=== PATIENT | female | born 1975 | race Caucasian/White ===

== ENCOUNTER 2018-07-02 21:45 | Inpatient (IN) ==
[2018-07-03] MEDS ORDERED: Piperacillin/Tazobactam 3.375 GM in 0.9 % Sodium Chloride Mini Bag 100 ML IVPB ONE (01:59)
--- NOTE | 2018-07-03 02:04 | Emergency Department Note ---
Disposition Clinical Impression: Left breast abscess, Cellulitis of left breast Disposition: Admitted As Inpatient Condition: Good Time of Disposition: 02:09 Wound/Laceration HPI - General Chief Complaint: ED Wound/Laceration Stated Complaint: Abscess L Breast Time Seen by Provider: 07/03/18 01:39 Nursing Notes Reviewed: Yes Vital Signs Reviewed: Yes - History of Present Illness HPI Narrative: 43-year-old female presents from home with bedside for continued evaluation of an incised abscess to the left breast. Patient had history of left breast abscess some years ago treated with bedside incision and drainage and antibiotics. This particular abscess started approximately 1 week ago and progressive. She was seen at outside hospital where she was given antibiotics unknown to the patient. The wound progressed and she [facility] with the abscess was incised, drained and she was placed on doxycycline and clindamycin. She was instructed that, if symptoms do not improve in 24 hours, to present to this emergency department. Patient's symptoms have not improved and she presents for evaluation. PMH: COPD Habits: Current every day smoker. ROS: Positive: Worsening redness and pain of left lower breast. Negative: Fever, chills, nausea, vomiting, chest pains, palpitations, dyspnea, diaphoresis, pain with movement of left upper extremity - Related Data Home Medications Medication Instructions Recorded Confirmed Lisinopril/Hydrochlorothiazide 1 tab PO DAILY 11/08/14 07/03/18 [Zestoretic 10-12.5 mg Tablet] Lovastatin [Mevacor] 20 mg PO HS 11/08/14 07/03/18 Albuterol Neb [AccuNeb] 1.25 mg IH Q4HR PRN 06/30/18 07/03/18 Albuterol Sulfate [Albuterol 2 puff IH Q4HR 06/30/18 07/03/18 Inhaler] Clindamycin [Cleocin] 150 mg PO Q6HR 06/30/18 07/03/18 Levothyroxine [Synthroid] 175 mcg PO 0630 06/30/18 07/03/18 Tramadol HCl [Ultram] 50 mg PO TID PRN 06/30/18 07/03/18 Previous Rx's Medication Instructions Recorded Dicloxacillin 250 mg PO QIDAC 7 Days #28 capsule 06/30/18 Doxycycline 100 mg PO BID #14 capsule 06/30/18 Ondansetron ODT [Zofran ODT] 4 mg SL Q6HR #10 tab.rapdis 07/01/18 Allergies Allergy/AdvReac Type Severity Reaction Status Date / Time hydromorphone [From Dilaudid] Allergy Hives Verified 07/01/18 15:36 All systems ED: reviewed and negative except as stated. Review of Systems: As Per HPI Past Medical History - Past Medical History Medical history: Reports: COPD, hyperlipidemia, hypertension, thyroid disease, other Surgical history: Reports: cholecystectomy, hysterectomy, other Psychiatric history: Reports: anxiety, depression [employer] history: Reports: bilateral tubal ligation - Social History Smoking Status: Current every day smoker Smokeless Tobacco Status: No Alcohol use: Reports: none Drug use: Reports: none Physical Exam Vital Signs Reviewed General: Patient is alert, oriented, and in no acute distress. Head: atraumatic, normocephalic Eye: normal appearance, PERRL, EOMI, no scleral icterus, no conjunctival injection ENT: mucous membranes moist, normal external ear exam Neck: normal inspection, trachea midline, full ROM Chest: normal inspection, symmetric chest rise Respiratory: Good respiratory effort. Bilateral breath sounds are clear without wheezing, crackles, or rhonchi. Cardiovascular: Regular rate and rhythm. No clicks, rubs, gallops, or murmors. Normal heart sounds. Abdomen: Bowel sounds present normoactive. Abdomen is soft, nondistended, and nontender. No guarding or rebound. No organomegaly noted. Musculoskeletal: Spontaneously moving all extremities. Skin: warm, dry. Cellulitis to lower breast extending to LUQ abdominal wall, no fluctuance or odor, no discharge from a surgical incision which remains open. Neuro: GCS 15. No focal neurologic deficits observed. Psych: Patient's affect is appropriate for situation. - General General appearance: alert Course Course Narrative: Patient has failed outpatient antibiotics. The abscess appears properly incised and drained it is nonfluctuant, patient and state the erythema and pain or worsening. Plan for admission with IV antibiotics Vital Signs Temperature 98.9 F 07/02/18 21:48 Pulse Rate 91 07/02/18 21:48 Respiratory Rate 18 07/02/18 21:48 Blood Pressure 164/100 07/02/18 21:48 O2 Sat by Pulse Oximetry 95 07/02/18 21:48 Temperature 97.4 F L 07/03/18 04:19 Pulse Rate 78 07/03/18 04:19 Respiratory Rate 16 07/03/18 04:19 Blood Pressure 145/87 07/03/18 04:19 O2 Sat by Pulse Oximetry 98 07/03/18 02:15 Oxygen Delivery Oxygen Delivery Room Air Wound/Laceration - Lab Data Result diagrams: 07/03/18 02:20 07/03/18 02:20 Lab Results 07/03/18 07/03/18 07/03/18 Range/Units 02:20 02:20 03:25 WBC 11.4 H (4.3-11.1) K/mcL RBC 4.38 (3.82-4.97) M/mcL Hgb 13.9 (11.5-15.4) g/dL Hct 40.6 (35.3-44.9) % MCV 92.7 (83.0-100.0) fL MCH 31.7 (28.0-33.3) pg MCHC 34.2 (31.6-35.5) g/dL RDW 12.4 (11.5-14.5) % Plt Count 244 (140-400) K/mcL MPV 11.8 (9.4-12.4) fL Immature Gran % 0.7 (0-4) % Seg Neutrophils % 59.4 % Lymphocytes % 29.5 % Monocytes % 7.6 % Eosinophils % 1.8 % Basophils % 1.0 % Neutrophils # 6.8 (1.6-8.9) K/mcL Lymphocytes # 3.4 (0.6-4.6) K/mcL Monocytes # 0.9 (0.0-1.3) K/mcL Eosinophils # 0.2 (0.0-0.6) K/mcL Basophils # 0.1 (0.0-0.2) K/mcL Sodium 131 L (136-145) mEq/L Potassium 3.3 L (3.5-5.1) mEq/L Chloride 100 (98-107) mEq/L Carbon Dioxide 27 (23-29) mEq/L BUN 8 (6-20) mg/dL Creatinine 0.57 L (0.60-1.20) mg/dL Est GFR ( Amer) > 60 (> 60) Est GFR (Non-Af Amer) > 60 (> 60) BUN/Creatinine Ratio 14 (6-26) Glucose 103 (70-105) mg/dL Calculated Osmolality 271 L (280-300) Lactic Acid 1.2 (0.5-2.2) mmol/L Calcium 8.8 (8.6-10.3) mg/dL Attestation Statement - Attestation Attestation: Dr. Ambriz note/attestation.: Patient was seen in conjunction with emergency medicine resident Dr. Edward Arias. Please see his charting for complete documentation. I spent [id number] time with the patient and I agree with the patient's treatment and disposition. Patient is had a history of recurrent left breast abscesses. This current abscess in the left lateral inferior breast started approximately 5-7 days ago. Clinically it appears that the incision and drainage done yesterday at an outside facility was done very well and was packed in the does not appear to be any residual fluctuance in or around the area of packing however patient is concerned about the erythema around the breast which is in the lower 20% of the anterior lateral breast and spreads onto the anterior chest wall. For this the patient says it is worse. No obvious fever. She has been on oral antibiotics for the last couple days that she reports her symptoms are getting worse and has been very complex in the past. Due to failed outpatient treatment she will be admitted on IV antibiotics for further evaluation. No indication for additional surgical intervention at this time.
[2018-07-03 02:25] LABS: Basophils # 0.1 K/mcL (0.0-0.2); Eosinophils # 0.2 K/mcL (0.0-0.6); Eosinophils % 1.8 %; Hematocrit 40.6 % (35.3-44.9); Hemoglobin 13.9 g/dL (11.5-15.4); Immature Granulocytes % 0.7 % (0-4); Lymphocytes # 3.4 K/mcL (0.6-4.6); Lymphocytes % 29.5 %; Mean Corpuscular HGB Conc 34.2 g/dL (31.6-35.5); Mean Corpuscular Hemoglobin 31.7 pg (28.0-33.3); Mean Corpuscular Volume 92.7 fL (83.0-100.0); Mean Platelet Volume 11.8 fL (9.4-12.4); Monocytes # 0.9 K/mcL (0.0-1.3); Monocytes % 7.6 %; Neutrophils # 6.8 K/mcL (1.6-8.9); Platelet Count 244 K/mcL (140-400); Red Blood Count 4.38 M/mcL (3.82-4.97); Red Cell Distribution Width 12.4 % (11.5-14.5); Segmented Neutrophils % 59.4 %
[2018-07-03 02:51] LABS: BUN/Creatinine Ratio 14 (6-26); Blood Urea Nitrogen 8 mg/dL (6-20); Calcium 8.8 mg/dL (8.6-10.3); Carbon Dioxide 27 mEq/L (23-29); Chloride 100 mEq/L (98-107); Glucose 103 mg/dL (70-105); Osmolality,Calculated 271 (280-300); Potassium 3.3 mEq/L (3.5-5.1); Sodium 131 mEq/L (136-145); eGFR For Non-African Americans > 60 (> 60)
[2018-07-03] MEDS ORDERED: Isovue-370 500 ML BOTTLE IVP ONE (03:05)
[2018-07-03] MEDS ORDERED: Albuterol Neb 1.25 MG/3 ML VIAL IH PRN ×2 (03:59→20:29)
[2018-07-03] MEDS ORDERED: *HR* OxyCODONE Immed Rel 5 MG TABLET PO PRN ×2 (04:00→19:34)
[2018-07-03] MEDS ORDERED: traMADol 50 MG TABLET PO PRN ×2 (04:00→20:29)
[2018-07-03] MEDS ORDERED: Naloxone 0.4 MG/ML INJ IVP PRN ×2 (04:00→20:29)
[2018-07-03] MEDS ORDERED: Acetaminophen 325 MG TABLET PO PRN ×2 (04:00→20:29)
[2018-07-03] MEDS ORDERED: Potassium Chloride Elixir 20 MEQ/15 ML UDC PO ONE (04:12)
[2018-07-03] MEDS ORDERED: 0.9 % Sodium Chloride 1,000 ML IVC SCH (04:30)
--- NOTE | 2018-07-03 04:36 | Internal Med History&Physical ---
Date of Encounter: 07/03/18 Time of Encounter: 04:35 Internal Medicine - H&P: HPI Chief complaint: left breast pain Admitted From: Home Plans for Post Hospital Care: Home History of present illness: Rhiannon Patel is a 43 year old woman with hypertension who developed soreness to her right breast spontaneously about 10 days ago that progressed to noticing erythema and firmness. She sought attention at [facility] where she was given 1 dose of parenteral abx then Rx clindamycin to go home on. It continued to progress over the days despite the oral abx with worsening pain and subsequently noticed blisters forming and skin sloughing. She went to [place] [facility] on 06/30 where she was offered I&D but declined so more abx were given. She went back the next day due to unbearable pain and firmness where an I&D was performed and copious purulent material was evacuated. The content was not sent for culture. She was Rx more oral abx. She comes here now due to a lack of improvement in her symptoms and developing chills. She is now admitted for inadequate response to outpatient therapy. Vitals: Reviewed General: Well developed woman lying in bed in NAD Skin: Warm and dry. HEENT: Moist mucous membranes. No conjunctivae pallor. Neck: No lymphadenopathy. No JVD. No carotid bruits. No palpable thyroid. Chest: Normal thoracic expansion. Normal breath sounds. Clear to auscultation. Left breast in its inferior aspect is pink, blanching, tense and dimpled with exquisite soreness to touch. Sub-centimeter sized orifice on inferolateral aspect draining fluid with surrounding eschar. Heart: Normal S1 & S2; rhythmic. No rubs or murmurs. Abdomen: Non-distended, soft and non-tender to palpation. No peritoneal reaction. Extremities: No clubbing, cyanosis or edema. No calf tenderness. Normal distal pulses. Neurological: Awake, alert and oriented to person, place and time. No focal deficits. Psych: Affect appropriate. Assessment/Plan 1. Right breast abscess: Suspected based on clinical exam. Will get a contrast enhanced CT for assessment. If positive will consult surgery for intervention. In the interim, keep on IV vancomycin, send blood cultures and obtain coags in case intervention is needed. 2. Hypertension: Continue Lisinopril/hctz. 3. Hypothyroidism: On levothyroxine. 4. Electrolyte imbalance: As evidenced by hyponatremia and hypokalemia. Will supplement accordingly. Past Med Surg Social Fam HX - Past Medical History Medical history: asthma, COPD, hyperlipidemia, hypertension, thyroid disease, other Additional medical history: hasimotos. Psychiatric history: anxiety, depression - Past Surgical History Surgical History: cholecystectomy, hysterectomy, other Additional surgical history: partial hysterectomy, tubal ligation, nerve ablation of spine - Social History Smoking Status: Current every day smoker Smokeless Tobacco Status: No Alcohol use: none Drug use: none Internal Medicine - H&P: Meds Lisinopril/Hydrochlorothiazide [Zestoretic 10-12.5 mg Tablet] 1 tab PO DAILY 11/08/14 [History] Lovastatin [Mevacor] 20 mg PO HS 11/08/14 [History] Albuterol Neb [AccuNeb] 1.25 mg IH Q4HR PRN 06/30/18 [History] Albuterol Sulfate [Albuterol Inhaler] 2 puff IH Q4HR 06/30/18 [History] Clindamycin [Cleocin] 150 mg PO Q6HR 06/30/18 [History] Dicloxacillin 250 mg PO QIDAC 7 Days #28 capsule 06/30/18 [Rx] Doxycycline 100 mg PO BID #14 capsule 06/30/18 [Rx] Levothyroxine [Synthroid] 175 mcg PO 0630 06/30/18 [History] Tramadol HCl [Ultram] 50 mg PO TID PRN 06/30/18 [History] Ondansetron ODT [Zofran ODT] 4 mg SL Q6HR #10 tab.rapdis 07/01/18 [Rx] Allergy/AdvReac Type Severity Reaction Status Date / Time hydromorphone [From Dilaudid] Allergy Hives Verified 07/01/18 15:36 All Systems PM: A 10-system review of systems was performed and is negative for pertinent findings except as documented above in the HPI. Family history reviewed and found non-contributory. - Constitutional Vitals: Temp Pulse Resp BP Pulse Ox 97.4 F L 78 16 145/87 98 07/03/18 04:19 07/03/18 04:19 07/03/18 04:19 07/03/18 04:19 05/27/19 02:15 Exam: . Internal Med - H&P Results - Labs CBC & Chem 7: 07/03/18 02:20 07/03/18 02:20 Labs: Short CBC 07/03/18 Range/Units 02:20 WBC 11.4 H (4.3-11.1) K/mcL Hgb 13.9 (11.5-15.4) g/dL Hct 40.6 (35.3-44.9) % Plt Count 244 (140-400) K/mcL Neutrophils # 6.8 (1.6-8.9) K/mcL BMP 07/03/18 02:20 Sodium 131 L Potassium 3.3 L Chloride 100 Carbon Dioxide 27 BUN 8 Creatinine 0.57 L Glucose 103 Calcium 8.8 - Time Spent With Patient Total time spent is greater than 50% in coordination of care (as documented) at patient's floor/unit and/or counseling patient: Greater than 35 minutes
[2018-07-03] MEDS: Ondansetron ODT 4 MG TAB.RAPDIS SL SCH ×3 (04:54→19:06)
[2018-07-03] MEDS ORDERED: *HR* Heparin 5,000 UNIT/ML VIAL SQ SCH (06:00)
[2018-07-03] MEDS: *HR* Heparin 5,000 UNIT/ML VIAL SQ SCH ×2 (06:36→19:06)
[2018-07-03 09:26] LABS: INR 1.1; Prothrombin Time 12.1 Seconds (9.4-12.1)
[2018-07-03 09:29] LABS: Activated Partial Thrombo Time 33.4 Seconds (26.0-36.0)
--- NOTE | 2018-07-03 10:28 | AcuteCare Surgery Consult Note ---
Date of Encounter: 07/03/18 Time of Encounter: 09:55 Assessment and Plan (1) Left breast abscess Current Visit: Yes Status: Acute Recommend Surgical incision and drainage of left breast abscess. Procedure, risks and benefit of left breast I&D are discussed with pt. Indiciations are compelled by failed outpt treatment. Possible complications include but, are not limited to bleeding or missed infection. Pt understands risks and wishes to proceed as advised. Continue IV abx with zosyn and vanc. NPO. COnsent obtained. Surgery scheduled. History of Present Illness Reason for consult: other (Left breast abscess) Requesting physician: Guerda Jane History of present illness: This 43 y /o female is admitted to [facility] for a left breast abscess that has fa iled outpt management. Pt reports left breast pain since 06/25/18 (8 days). She reports that initially she was started on PO clindamycin and the breast continued to be painful and red. She reports continued worsening of redness, swelling and pain. Also, at [facility] she underwent a lancing and packing of abscess. Purulent fluid was drained and packing was placed. However, the drainage stopped and the redness, swelling and pain continued to progressively worsen. Pt denies bloody or purulent nipple DC. She denies lumps in armpits. She denies other symptoms. She denies fever. Past Med Surg Social Fam HX - Past Medical History Medical history: asthma, COPD, hyperlipidemia, hypertension, thyroid disease, other Additional medical history: hasimotos. Psychiatric history: anxiety, depression - Past Surgical History Surgical History: cholecystectomy, hysterectomy, other Additional surgical history: partial hysterectomy, tubal ligation, nerve ablation of spine - Social History Smoking Status: Current every day smoker Smokeless Tobacco Status: No Alcohol use: none Drug use: none - Family History Mother Hx Family Cardiac Disorders: Yes (htn) Hx Family Cancer: Yes (melonoma) Medications and Allergies Lisinopril/Hydrochlorothiazide [Zestoretic 10-12.5 mg Tablet] 1 tab PO DAILY 11/08/14 [History] Lovastatin [Mevacor] 20 mg PO HS 11/08/14 [History] Albuterol Neb [AccuNeb] 1.25 mg IH Q4HR PRN 06/30/18 [History] Albuterol Sulfate [Albuterol Inhaler] 2 puff IH Q4HR 06/30/18 [History] Clindamycin [Cleocin] 150 mg PO Q6HR 06/30/18 [History] Dicloxacillin 250 mg PO QIDAC 7 Days #28 capsule 06/30/18 [Rx] Doxycycline 100 mg PO BID #14 capsule 06/30/18 [Rx] Levothyroxine [Synthroid] 175 mcg PO 0630 06/30/18 [History] Tramadol HCl [Ultram] 50 mg PO TID PRN 06/30/18 [History] Ondansetron ODT [Zofran ODT] 4 mg SL Q6HR #10 tab.rapdis 07/01/18 [Rx] Allergy/AdvReac Type Severity Reaction Status Date / Time hydromorphone [From Dilaudid] Allergy Hives Verified 07/01/18 15:36 Review of Systems All systems PM: The remainder of the systems were reviewed and are negative - Constitutional as per HPI, no anorexia, no chills, no fatigue, no fever(s), no night sweats - EENT Nose, mouth and throat: no dizziness, no dry mouth, no nasal congestion, no nasal discharge, no sinus pain, no sinus pressure, no sore throat - Cardiovascular no chest pain, no diaphoresis, no dyspnea, no edema - Respiratory no cough, no dyspnea, no wheezing - Gastrointestinal no abdominal pain, no constipation, no diarrhea, no nausea, no vomiting - Genitourinary Genitourinary: breast pain, breast skin changes, breast swelling, no breast change in shape, no breast mass, no dysuria, no flank pain, no urinary urgency - Musculoskeletal no back pain, no joint swelling, no limited range of motion, no neck pain - Integumentary wounds, other (left breast abscess + purulent drainage) - Neurological no dizziness, no focal weakness, no weakness - Psychiatric no anxiety, no depression - Hematologic/Lymphatic no easy bleeding, no easy bruising General Surgery Exam Initial Vital Signs Temp Pulse Resp BP Pulse Ox 98.9 F 91 18 164/100 95 07/02/18 21:48 07/02/18 21:48 07/02/18 21:48 07/02/18 21:48 07/02/18 21:48 - General physical appearance well developed, well nourished, no distress. negative: jaundice - Eyes PERRL, normal ocular movement. negative: icteric - ENT normal mucosa, no congestion. negative: nasal discharge - Neck no masses, no lymphadectomy, no venous distension - Respiratory normal respiratory effort, clear to auscultation - Cardiovascular Cardiovascular exam: Present: RRR. Absent: murmurs - Abdomen Abdomen general surgery: Present: bowel sounds present, soft, non tender - Incision Incision: Present: open (left breast with puncture from I&D with no active drain age) - Genitourinary Present: normal external genitalia (see above for breast findings) - Integumentary Integumentary general surgery: Present: other (left breast abscess) - Neurologic Present: CN 2-12 grossly intact, normal coordination - Musculoskeletal Present: normal gait, normal posture - Psychiatric Psychiatric general surgery: Present: A&Ox3, appropriate Exam Initial Vital Signs Temp Pulse Resp BP Pulse Ox 98.9 F 91 18 164/100 95 07/02/18 21:48 07/02/18 21:48 07/02/18 21:48 07/02/18 21:48 07/02/18 21:48 Results - Labs 07/03/18 02:20 07/03/18 02:20 Abnormal lab results WBC 11.4 K/mcL (4.3-11.1) H 07/03/18 02:20 Sodium 131 mEq/L (136-145) L 07/03/18 02:20 Potassium 3.3 mEq/L (3.5-5.1) L 07/03/18 02:20 0.57 mg/dL (0.60-1.20) L 07/03/18 02:20 271 (280-300) L 07/03/18 02:20 Diabetes panel 07/03/18 Range/Units 02:20 Sodium 131 L (136-145) mEq/L Potassium 3.3 L (3.5-5.1) mEq/L Chloride 100 (98-107) mEq/L Carbon Dioxide 27 (23-29) mEq/L BUN 8 (6-20) mg/dL Creatinine 0.57 L (0.60-1.20) mg/dL Glucose 103 (70-105) mg/dL Calcium 8.8 (8.6-10.3) mg/dL Calcium panel 07/03/18 Range/Units 02:20 Calcium 8.8 (8.6-10.3) mg/dL Pituitary panel 07/03/18 Range/Units 02:20 Sodium 131 L (136-145) mEq/L Potassium 3.3 L (3.5-5.1) mEq/L Chloride 100 (98-107) mEq/L Carbon Dioxide 27 (23-29) mEq/L BUN 8 (6-20) mg/dL Creatinine 0.57 L (0.60-1.20) mg/dL Glucose 103 (70-105) mg/dL Calcium 8.8 (8.6-10.3) mg/dL Adrenal panel 07/03/18 Range/Units 02:20 Sodium 131 L (136-145) mEq/L Potassium 3.3 L (3.5-5.1) mEq/L Chloride 100 (98-107) mEq/L Carbon Dioxide 27 (23-29) mEq/L BUN 8 (6-20) mg/dL Creatinine 0.57 L (0.60-1.20) mg/dL Glucose 103 (70-105) mg/dL Calcium 8.8 (8.6-10.3) mg/dL All other labs normal. - Imaging CT scan - chest: report reviewed (Left breast skin changes c/w cellulitis and subq air), image reviewed Consult Discharge Plan - Plan Referrals: Pam Thayer, PROPERTY ADMINISTRATOR [Primary Care Provider] - (Appointment has been requsted. Our offices will call with an appointment time and date.)
--- NOTE | 2018-07-03 11:46 | Internal Med Progress Note ---
Hospitalist Progress Note - Encounter Date of Encounter: 07/03/18 Time of Encounter: 10:00 - Subjective Interval History: Ms. Patel is a 43 year old woman with hypertension who developed soreness to her left breast spontaneously about 10 days ago that progressed with erythema and firmness. She sought attention at [facility] where she was given 1 dose of parenteral abx then Rx clindamycin to go home on. It continued to progress over the days despite the oral abx with worsening pain and subsequently noticed blisters forming and skin sloughing. She went to [place] [facility] on 06/30 where she was offered I&D but declined so more abx were given. She went back the next day due to unbearable pain and firmness where an I&D was performed and copious purulent material was evacuated. The content was not sent for culture. She was Rx more oral abx. Now she presented to our ER due to a lack of improvement in her symptoms and developing chills. Her CT of Chest showed Asymmetric superficial skin thickening of the left breast. Small focus of associated air c an relate to recent intervention. she was admitted in the hospital and started her on empirical antibiotic IV zosyn and vancomycin. Pt stated she is feeling little better today, however still has moderate erythema, tenderness and swelling in Left breast. - Exam Vitals: Temp Pulse Resp BP Pulse Ox 98.1 F 72 19 126/81 95 07/03/18 06:42 07/03/18 06:42 07/03/18 06:42 07/03/18 06:42 07/03/18 06:42 Exam: Gen: Alert, awake, Oriented to time,place and person Chest: Diminished breath sounds B/L, No wheezing, No crackles, No rales Breast" Small puncture wound from recent I & D noticed over Left breast LLQ reg ion associated with swelling, tender and induration over LLQ Heart: S1S2+ RRR No murmurs Abd: Soft, NT, BS +, No organomegaly Ext: No edema, pulses are palpable, No calf tenderness Neuro : Benign findings - Assessment and Plan (1) Left breast abscess Current Visit: Yes Status: Acute Assessment and Plan: Concerning for left breast abscess s/p I & D twice in the ER.. no improvement Consulted surgery for further eval.. scheduled for I & D today Since pt failed out pt abx therapy, cont broad spec abx Zosyn and Vanc for now cont close monitoring NPO for now for surgery (2) Cellulitis of left breast Current Visit: Yes Status: Acute Assessment and Plan: cont above care (3) HTN (hypertension) Current Visit: Yes Status: Acute Assessment and Plan: Blood pressure well-controlled with current regimen (4) Hypothyroid Current Visit: Yes Status: Chronic Assessment and Plan: resumed home med - Time Spent with Patient Total time spent is greater than 50% in coordination of care (as documented) at patient's floor/unit and/or counseling patient: Internal Medicine: Result - Labs CBC & Chem 7: 07/03/18 02:20 07/03/18 02:20 Labs: Short CBC 07/03/18 Range/Units 02:20 WBC 11.4 H (4.3-11.1) K/mcL Hgb 13.9 (11.5-15.4) g/dL Hct 40.6 (35.3-44.9) % Plt Count 244 (140-400) K/mcL Neutrophils # 6.8 (1.6-8.9) K/mcL BMP 07/03/18 02:20 Sodium 131 L Potassium 3.3 L Chloride 100 Carbon Dioxide 27 BUN 8 Creatinine 0.57 L Glucose 103 Calcium 8.8 - ABG Interpretation ABG results: PT/INR, D-dimer PT 12.1 Seconds (9.4-12.1) 07/03/18 08:38 - Impressions Impressions Chest CT 07/03/18 03:05 IMPRESSION: Asymmetric superficial skin thickening of the left breast, in keeping with patient's history of cellulitis. Small focus of associated air can relate to recent intervention. Left axillary adenopathy likely reactive. Follow-up to resolution is recommended. Several noncalcified pulmonary nodules measuring up to approximately 5 mm. Follow-up recommendations are as below. RECOMMENDATIONS: Fleischner Society guidelines for follow-up and management of incidentally detected pulmonary nodules: Single Solid Nodule: Nodule size less than 6 mm In a low-risk patient, no routine follow-up. In a high-risk patient, optional CT at 12 months. Nodule size equals 6-8 mm In a low-risk patient, CT at 6-12 months, then consider CT at 18-24 months. In a high-risk patient, CT at 6-12 months, then CT at 18-24 months. Nodule size greater than 8 mm In a low-risk patient, consider CT at 3 months, PET/CT, or tissue sampling. In a high-risk patient, consider CT at 3 months, PET/CT, or tissue sampling. Multiple Solid Nodules: Nodule size less than 6 mm In a low-risk patient, no routine follow-up. In a high-risk patient, optional CT at 12 months. Nodule size equals 6-8 mm In a low-risk patient, CT at 3-6 months, then consider CT at 18-24 months. In a high-risk patient, CT at 3-6 months, then CT at 18-24 months. Nodule size greater than 8 mm In a low-risk patient, CT at 3-6 months, then consider CT at 18-24 months. In a high-risk patient, CT at 3-6 months, then CT at 18-24 months. - Low risk patients include individuals with minimal or absent history of smoking and other known risk factors. - High risk patients include individuals with a history or smoking or known risk factors. Radiology 2017 http://pubs.rsna.org/doi/full/10.1148/radiol.[email or web address] D/ / Jessee Linares MD / Jessee Linares MD Interpreting Provider: Jessee Linares MD Consult Discharge Plan - Plan Referrals: Pam Thayer, ENERGY MANAGER [Primary Care Provider] - (Appointment has been requsted. Our offices will call with an appointment time and date.) (3) HTN (hypertension) Qualifiers: Hypertension type: essential hypertension Qualified Code(s): I10 - Essential (primary) hypertension (4) Hypothyroid Qualifiers: Hypothyroidism type: unspecified Qualified Code(s): E03.9 - Hypothyroidism, unspecified
--- NOTE | 2018-07-03 16:37 | Anesthesia Evaluation PreOp ---
Date of Encounter: 07/03/18 Time of Encounter: 16:35 - Past History Planned Operation: I&D L-breast Cardiac History: HTN, Hyperlipidemia Pulmonary History: Smoker (<1ppd), Asthma, COPD, ADELA Dx (denies) CRIMINALIST History: Denies Any Significant HX Other Medical History: Thyroid (Hypothyroidism) Anesthesia History: No Prior Anesthetic Complications, Past Anesthesia (Marya, Partial Hyster, Spinal nerve root ablation,) : No Test: Negative Alcohol Use: none Drug use: none Medications and Allergies Lisinopril/Hydrochlorothiazide [Zestoretic 10-12.5 mg Tablet] 1 tab PO DAILY 11/08/14 [History] Lovastatin [Mevacor] 20 mg PO HS 11/08/14 [History] Albuterol Neb [AccuNeb] 1.25 mg IH Q4HR PRN 06/30/18 [History] Albuterol Sulfate [Albuterol Inhaler] 2 puff IH Q4HR 06/30/18 [History] Clindamycin [Cleocin] 150 mg PO Q6HR 06/30/18 [History] Dicloxacillin 250 mg PO QIDAC 7 Days #28 capsule 06/30/18 [Rx] Doxycycline 100 mg PO BID #14 capsule 06/30/18 [Rx] Levothyroxine [Synthroid] 175 mcg PO 0630 06/30/18 [History] Tramadol HCl [Ultram] 50 mg PO TID PRN 06/30/18 [History] Ondansetron ODT [Zofran ODT] 4 mg SL Q6HR #10 tab.rapdis 07/01/18 [Rx] Allergy/AdvReac Type Severity Reaction Status Date / Time hydromorphone [From Dilaudid] Allergy Hives Verified 07/01/18 15:36 - Meds/Allergy Pre-op Review Medications Reviewed: Yes Allergies Reviewed: Yes Beta Blockers on Current Med List: No Anesthesia Results - Labs 07/03/18 02:20 07/03/18 02:[address] 07/03/18 03:05 IMPRESSION: Asymmetric superficial skin thickening of the left breast, in keeping with patient's history of cellulitis. Small focus of associated air can relate to recent intervention. Left axillary adenopathy likely reactive. Follow-up to resolution is recommended. Several noncalcified pulmonary nodules measuring up to approximately 5 mm. Laboratory Results 07/03/18 08:38 PT 12.1 INR 1.1 APTT 33.4 Anesthesia Exam Vital Signs Temp Pulse Resp BP Pulse Ox 07/03/18 16:14 98.6 F 66 14 125/81 94 07/03/18 12:19 98.4 F 76 15 107/71 92 07/03/18 06:42 98.1 F 72 19 126/81 95 07/03/18 04:19 97.4 F L 78 16 145/87 07/03/18 04:07 16 134/96 07/03/18 02:15 86 16 144/93 98 07/02/18 21:48 98.9 F 91 18 164/100 95 Intake and Output 07/03/18 07/03/18 07/03/18 07:59 15:59 23:59 Output Total 0 / 0 Balance 0 / 0 Output: Urine 0 / 0 Other: # Voids 1 Weight 71 kg Patient Weight 07/03/18 23:59 Weight 71 kg Height: 5'5" Weight: 156# BMI = 26 NPO (# of Hours): MNoc - HEENT Pupil (Motor): Pupils equal, EOMI Mallampati: III Teeth: Edentulous - CRIMINALIST LOC: Oriented CRIMINALIST Motor: Normal RUE, Normal LUE, Normal RLE, Normal LLE, Normal Face CRIMINALIST Sensory: Normal: RUE, LUE, RLE, LLE, Face - Cardiac Rhythm: Regular Murmur: None - Pulmonary Breath Sounds: bilateral Clear Respiratory Effort: Symmetrical Anesthesia Assess/Plan ASA Score: 3 (HTN, Chol, Smoker, Asthma, COPD, Hypothyroidism), E Level of consciousness: Cooperative, Oriented, Tranquil Anesthetic Plan: General Monitoring Plan: Standard Monitors Recovery Plan: PACU Anes Supervising Prov Stmt: Pt seen/evaluated, R&B Discussed,questions answered and consent obtained. Tiffany Ornelas MD
[2018-07-03] MEDS ORDERED: Lidocaine -MPF 2% 2 ML VIAL ONE (17:37)
[2018-07-03] MEDS ORDERED: *HR* Midazolam HCl 2 MG/2 ML VIAL ONE (17:38)
[2018-07-03] MEDS ORDERED: *HR* Propofol 200 MG/20 ML VIAL IVP ONE (17:38)
[2018-07-03] MEDS ORDERED: *HR* FentaNYL (PF) 100 MCG/2 ML VIAL ONE (17:38)
[2018-07-03] MEDS ORDERED: Acetaminophen IV 1,000 MG/100 ML INFUS..BTL ONE (18:24)
[2018-07-03] MEDS ORDERED: Pregabalin 75 MG CAPSULE ONE (18:24)
[2018-07-03] MEDS ORDERED: Famotidine 20 MG/2 ML VIAL ONE (18:25)
[2018-07-03] MEDS ORDERED: Ondansetron 4 MG/2 ML VIAL ONE (19:07)
[2018-07-03] MEDS ORDERED: Dexamethasone 4 MG/ML VIAL ONE (19:07)
--- NOTE | 2018-07-03 19:23 | Operative Note ---
Date of procedure: 07/03/18 Pre-op diagnosis: Left breast abscess Post-op diagnosis: same Procedure: Incision and drainage of left breast abscess Complications: None Anesthesia: GETA Surgeon: Feliz Patel Was there an cancer genetics assistant present: No Estimated blood loss (cc): 20 Specimen: Aerobic and anaerobic cultures of left breast abscess Condition: stable Disposition: PACU Procedure in Detail: This 43 y/o female pt with left breast abscess was taken to OR and placed in the supine position. The left breast was prepped and draped in the usual sterile fashion. A 10 blade scalpel was used to make an elliptical incision over the apex of the fluctuant mass. Immediate drainage of purulent fluid was achieved. This fluid was cultured with aerobic and anaerobic culture swabs. The abscess cavity was completely drained. It was explored for loculations and tracking. The infected tissue was debrided. No signs of necrosis or gangrene were appreciated. The wound cavity was then irrigated with pulse lavage. Hemostasis was perfected using electrocautery. The wound was packed with 1 inch iodoform packing strip. A sterile cover dressing was placed. A surgical bra was placed. Pt tolerated the procedure well and was taken to the PACU in good condition.
[2018-07-03] MEDS ORDERED: Ketorolac 30 MG/ML VIAL ONE (19:24)
[2018-07-03] MEDS ORDERED: Ipratropium/Albuterol Neb 3 ML ONE (19:28)
[2018-07-03] MEDS ORDERED: *HR* Promethazine 25 MG/ML VIAL IVP PRN (19:33)
[2018-07-03] MEDS ORDERED: Ondansetron 4 MG/2 ML VIAL IVP ONE (19:33)
[2018-07-03] MEDS ORDERED: Ipratropium/Albuterol Neb 3 ML IH ONE (19:34)
--- NOTE | 2018-07-03 19:37 | Anesthesia Evaluation Post Op ---
Date of Encounter: 07/03/18 Time of Encounter: 09:55 - Discharge PostOp Status: Transfer Patient to floor (Patient's vital signs have been reviewed. Patient is stable postoperatively and has adequately recovered from anesthesia. Patient is determined to have stable airway patency and respiratory function including respiratory rate and oxygen saturation. Patient has a stable heart rate, blood pressure and adequate hydration. Patients mental status is acceptable. Patients temperature is appropriate. Pain and nausea are adequately controlled.)
[2018-07-03] MEDS ORDERED: *HR* Promethazine 25 MG/ML VIAL ONE (19:40)
[2018-07-03] MEDS: Piperacillin/Tazobactam 3.375 GM in 0.9 % Sodium Chloride Mini Bag 100 ML IVPB SCH (23:52)
[2018-07-04] MEDS: Ondansetron ODT 4 MG TAB.RAPDIS SL SCH ×4 (00:12→17:51)
[2018-07-04] MEDS: *HR* OxyCODONE Immed Rel 5 MG TABLET PO PRN ×4 (02:37→21:02)
[2018-07-04] MEDS: *HR* Heparin 5,000 UNIT/ML VIAL SQ SCH ×2 (05:39→17:51)
[2018-07-04] MEDS: Piperacillin/Tazobactam 3.375 GM in 0.9 % Sodium Chloride Mini Bag 100 ML IVPB SCH ×2 (08:16→17:48)
[2018-07-04] MEDS ORDERED: Aminoglycoside Consult 1 EACH MC ONE (11:22)
--- NOTE | 2018-07-04 11:37 | Internal Med Progress Note ---
Hospitalist Progress Note - Encounter Date of Encounter: 07/04/18 Time of Encounter: 10:45 - Subjective Interval History: Ms. Patel is a 43 year old woman with hypertension who developed soreness to her left breast spontaneously about 10 days ago that progressed with erythema and firmness. She sought attention at [place] [facility] where she was given 1 dose of parenteral abx then Rx clindamycin to go home on. It continued to progress over the days despite the oral abx with worsening pain and subsequently noticed blisters forming and skin sloughing. She went to [facility] on 06/30 where she was offered I&D but declined so more abx were given. She went back the next day due to unbearable pain and firmness where an I&D was performed and copious purulent material was evacuated. The content was not sent for culture. She was Rx more oral abx. Now she presented to our ER due to a lack of improvement in her symptoms and developing chills. Her CT of Chest showed Asymmetric superficial skin thickening of the left breast. Small focus of associated air c an relate to recent intervention. she was admitted in the hospital and started her on empirical antibiotic IV zosyn and vancomycin. She was evaluated by surgery who did I & D on 07/03/18 and packed the wound. Pt stated she is feeling little better today, her pain also tolerable with current meds. - Exam Vitals: Temp Pulse Resp BP Pulse Ox 97.8 F 58 17 113/73 94 07/04/18 11:09 07/04/18 11:09 07/04/18 11:09 07/04/18 11:09 07/04/18 11:09 Exam: Gen: Alert, awake, Oriented to time,place and person Chest: Diminished breath sounds B/L, No wheezing, No crackles, No rales Breast : s/p I & D left breast LLQ with wound packing.. Still has mild discharge Heart: S1S2+ RRR No murmurs Abd: Soft, NT, BS +, No organomegaly Ext: No edema, pulses are palpable, No calf tenderness Neuro : Benign findings - Assessment and Plan (1) Left breast abscess Current Visit: Yes Status: Acute Assessment and Plan: Concerning for left breast abscess s/p I & D twice in the ER.. no improvement Failed out pt abx for almost 7-10 days course Consulted surgery for further eval. Had I & D with wound packing y/d Swelling, erythema and tenderness better today Since pt failed out pt abx therapy, cont broad spec abx Zosyn and Vanc for now waiting for wound cx cont close monitoring (2) Cellulitis of left breast Current Visit: Yes Status: Acute Assessment and Plan: cont above care (3) HTN (hypertension) Current Visit: Yes Status: Acute Assessment and Plan: Blood pressure well-controlled with current regimen (4) Hypothyroid Current Visit: Yes Status: Chronic Assessment and Plan: resumed home med - Time Spent with Patient Total time spent is greater than 50% in coordination of care (as documented) at patient's floor/unit and/or counseling patient: Internal Medicine: Result - Labs CBC & Chem 7: 07/03/18 02:20 07/03/18 02:20 - ABG Interpretation ABG results: PT/INR, D-dimer PT 12.1 Seconds (9.4-12.1) 07/03/18 08:38 Consult Discharge Plan - Plan Referrals: Zhang Vivas MD [Non-Partnered Physician] - (Appointment hsa been requested) Pam Thayer CNP [Primary Care Provider] - (Appointment has been requsted. Our offices will call with an appointment time and date.) (3) HTN (hypertension) Qualifiers: Hypertension type: essential hypertension Qualified Code(s): I10 - Essential (primary) hypertension (4) Hypothyroid Qualifiers: Hypothyroidism type: unspecified Qualified Code(s): E03.9 - Hypothyroidism, unspecified
[2018-07-04 12:35] LABS: Basophils # 0.1 K/mcL (0.0-0.2); Basophils % 0.6 %; Eosinophils # 0.1 K/mcL (0.0-0.6); Eosinophils % 0.5 %; Hematocrit 36.9 % (35.3-44.9); Immature Granulocytes % 0.6 % (0-4); Lymphocytes # 2.5 K/mcL (0.6-4.6); Lymphocytes % 20.8 %; Mean Corpuscular HGB Conc 32.8 g/dL (31.6-35.5); Mean Corpuscular Volume 94.6 fL (83.0-100.0); Mean Platelet Volume 12.3 fL (9.4-12.4); Monocytes % 8.2 %; Neutrophils # 8.4 K/mcL (1.6-8.9); Platelet Count 223 K/mcL (140-400); Red Cell Distribution Width 12.7 % (11.5-14.5); Segmented Neutrophils % 69.3 %
[2018-07-04 12:36] LABS: Hemoglobin 12.1 g/dL (11.5-15.4)
[2018-07-04 12:52] LABS: BUN/Creatinine Ratio 15 (6-26); Blood Urea Nitrogen 11 mg/dL (6-20); Carbon Dioxide 28 mEq/L (23-29); Chloride 99 mEq/L (98-107); Glucose 111 mg/dL (70-105); Osmolality,Calculated 278 (280-300); Potassium 3.9 mEq/L (3.5-5.1); Sodium 134 mEq/L (136-145); eGFR For Non-African Americans > 60 (> 60)
--- NOTE | 2018-07-04 15:23 | AcuteCareSurgery Progress Note ---
Date of Encounter: 07/04/18 Time of Encounter: 07:30 - Assessment and Plan (1) Left breast abscess Current Visit: Yes Status: Acute POD#1 Incision and drainage left breast abscess. Pt doing well. daily packing changes with decreasing length of iodoform packing material. DC home per primary service. F/U with acute care surgery in 2 weeks. Subjective Patient reports: no new complaints, feels better, still having pain, pain is less, tolerating a regular diet Objective Vital Signs - Last 8 Hours Temp Pulse Resp BP Pulse Ox 07/04/18 11:09 97.8 F 58 17 113/73 94 Intake and Output 07/03/18 07/04/18 07/04/18 23:59 07:59 15:59 Intake Total 100 / 1050 950 / 1050 Output Total 20 / 20 Balance -20 / -20 100 / 1050 950 / 1050 Intake: IV Fluids 100 / 450 350 / 450 Zosyn 3.375 GM In 0.9 % Sodium 100 / 200 100 / 200 Chloride (Mini-Bag +) 100 ML @ 25 mls/hr IVPB Q8HR CL Rx#: [id number] Vancocin 1,000 MG In 0.9 % 250 / 250 Sodium Chloride 250 ML @ 167 mls/hr IVPB Q12H CL Rx#: [id number] Oral 600 / 600 Output: Estimated Blood Loss 20 / 20 Other: Meal Lunch Percent of Meal Consumed 80% # Voids 1 Weight 71.3 kg Patient Weight 07/04/18 23:59 Weight 71.3 kg - General physical appearance no distress, moderate pain (much improved) - Eyes PERRL, normal ocular movement - ENT normal mucosa, no congestion - Neck Neck exam: no masses, trachea midline - Respiratory normal respiratory effort, clear to auscultation - Cardiovascular Cardiovascular exam: Present: RRR. Absent: murmurs - Abdomen Abdomen: Present: bowel sounds present, soft, non tender - Incision Incision: Present: open (left breast with packing in place) - Neurologic CN 2-12 grossly intact, normal coordination - Musculoskeletal normal posture - Psychiatric oriented to time, oriented to person, oriented to place - Labs 07/04/18 11:43 07/04/18 11:43 Diabetes panel 07/04/18 Range/Units 11:43 Sodium 134 L (136-145) mEq/L Potassium 3.9 (3.5-5.1) mEq/L Chloride 99 (98-107) mEq/L Carbon Dioxide 28 (23-29) mEq/L BUN 11 (6-20) mg/dL Creatinine 0.72 (0.60-1.20) mg/dL Glucose 111 H (70-105) mg/dL Calcium 9.0 (8.6-10.3) mg/dL Calcium panel 07/04/18 Range/Units 11:43 Calcium 9.0 (8.6-10.3) mg/dL Pituitary panel 07/04/18 Range/Units 11:43 Sodium 134 L (136-145) mEq/L Potassium 3.9 (3.5-5.1) mEq/L Chloride 99 (98-107) mEq/L Carbon Dioxide 28 (23-29) mEq/L BUN 11 (6-20) mg/dL Creatinine 0.72 (0.60-1.20) mg/dL Glucose 111 H (70-105) mg/dL Calcium 9.0 (8.6-10.3) mg/dL Adrenal panel 07/04/18 Range/Units 11:43 Sodium 134 L (136-145) mEq/L Potassium 3.9 (3.5-5.1) mEq/L Chloride 99 (98-107) mEq/L Carbon Dioxide 28 (23-29) mEq/L BUN 11 (6-20) mg/dL Creatinine 0.72 (0.60-1.20) mg/dL Glucose 111 H (70-105) mg/dL Calcium 9.0 (8.6-10.3) mg/dL Consult Discharge Plan - Plan Referrals: Zhang Vivas MD [Non-Partnered Physician] - (Appointment hsa been requested) Pam Thayer CNP [Primary Care Provider] - (Appointment has been requsted. Our offices will call with an appointment time and date.)
[2018-07-05] MEDS: Ondansetron ODT 4 MG TAB.RAPDIS SL SCH ×2 (00:01→05:44)
[2018-07-05] MEDS: Piperacillin/Tazobactam 3.375 GM in 0.9 % Sodium Chloride Mini Bag 100 ML IVPB SCH ×2 (00:02→07:39)
[2018-07-05] MEDS: *HR* Heparin 5,000 UNIT/ML VIAL SQ SCH (05:44)
[2018-07-05] MEDS: *HR* OxyCODONE Immed Rel 5 MG TABLET PO PRN (05:48)
--- NOTE | 2018-07-05 09:55 | Discharge Summary ---
- NOTES TO OUTPATIENT PROVIDER Notes to Outpatient Provider: f/u with surgery Dr. Romero on July 11 as scheduled. Please continue dressing change as directed / instrcuted. Please f/u with PCP in one week. Orders not resulted at time of discharge: Pending orders 07/03/18 03:25 Culture,Blood [BC] Stat 07/03/18 19:28 Culture,Anaerobic [RM] Routine Culture,Wound [RM] Routine Date of Encounter: 07/05/18 Time of Encounter: 09:30 - Discharge Diagnosis (1) Left breast abscess Priority: Primary Status: Acute (2) Cellulitis of left breast Priority: Primary Status: Acute (3) HTN (hypertension) Priority: Secondary Status: Acute Qualifiers: Hypertension type: essential hypertension Qualified Code(s): I10 - Essential (primary) hypertension (4) Hypothyroid Priority: Secondary Status: Chronic Qualifiers: Hypothyroidism type: unspecified Qualified Code(s): E03.9 - Hypothyroidism, unspecified Hospital course: Ms. Patel is a 43 year old woman with hypertension who developed soreness to her left breast spontaneously about 10 days ago that progressed with erythema and firmness. She sought attention at [facility] where she was given 1 dose of parenteral abx then Rx clindamycin to go home on. It continued to progress over the days despite the oral abx with worsening pain and subsequently noticed blisters forming and skin sloughing. She went to [facility] on 06/30 where she was offered I&D but declined so more abx were given. She went back the next day due to unbearable pain and firmness where an I&D was performed and copious purulent material was evacuated. The content was not sent for culture. She was Rx more oral abx. Now she presented to our ER due to a lack of improvement in her symptoms and developing chills. Her CT of Chest showed Asymmetric superficial skin thickening of the left breast. Small focus of associated air can relate to recent intervention. she was admitted in the hospital and started her on empirical antibiotic IV zosyn and vancomycin. She was evaluated by surgery who did I & D on 07/03/18 and packed the wound. Her wound cx did not grow any bacteria now, could be due to prior treatment with different abx. However her left breast swelling, erythema and tenderness much better now. Surgery recommend to continue wound packing for now and f.u with them as an out pt. So will d/c her home in stable condition today with PO Augmentin for another 7 days course. - Time Spent with Patient Total time spent providing and/or coordinating discharge services: - Discharge Medications Prescriptions: New Amoxicillin/Clavulanate [Augmentin] 875 mg PO BIDWM #14 tablet Oxycodone HCl 5 mg PO TID PRN 5 Days #15 tablet PRN Reason: Pain Continued Lisinopril/Hydrochlorothiazide [Zestoretic 10-12.5 mg Tablet] 1 tab PO DAILY Lovastatin [Mevacor] 20 mg PO HS Tramadol HCl [Ultram] 50 mg PO TID PRN PRN Reason: Pain Albuterol Neb [AccuNeb] 1.25 mg IH Q4HR PRN PRN Reason: Shortness Of Breath Albuterol Sulfate [Albuterol Inhaler] 2 puff IH Q4HR Levothyroxine [Synthroid] 175 mcg PO 0630 Ondansetron ODT [Zofran ODT] 4 mg SL Q6HR #10 tab.rapdis Discontinued Clindamycin [Cleocin] 150 mg PO Q6HR Dicloxacillin 250 mg PO QIDAC 7 Days #28 capsule Doxycycline 100 mg PO BID #14 capsule Home Medications: Lisinopril/Hydrochlorothiazide [Zestoretic 10-12.5 mg Tablet] 1 tab PO DAILY 11/08/14 [History] Lovastatin [Mevacor] 20 mg PO HS 11/08/14 [History] Albuterol Neb [AccuNeb] 1.25 mg IH Q4HR PRN 06/30/18 [History] Albuterol Sulfate [Albuterol Inhaler] 2 puff IH Q4HR 06/30/18 [History] Levothyroxine [Synthroid] 175 mcg PO 0630 06/30/18 [History] Tramadol HCl [Ultram] 50 mg PO TID PRN 06/30/18 [History] Ondansetron ODT [Zofran ODT] 4 mg SL Q6HR #10 tab.rapdis 07/01/18 [Rx] Amoxicillin/Clavulanate [Augmentin] 875 mg PO BIDWM #14 tablet 07/05/18 [Rx] Oxycodone HCl 5 mg PO TID PRN 5 Days #15 tablet 07/05/18 [Rx] Allergies/Adverse Reactions: Allergy/AdvReac Type Severity Reaction Status Date / Time hydromorphone [From Dilaudid] Allergy Hives Verified 07/01/18 15:36 Date of admission: 07/03/18 04:25 Primary care physician: Pam Thayer CNP Consults: 07/03/18 09:51 Consult to Surgery [CONS] Routine Consulting Provider: Acute Care Surgery Reason for Consult: Left breast abscess Time Notified: 09:52 Call Completed: Yes - Constitutional Vitals: Temp Pulse Resp BP Pulse Ox 98.0 F 83 16 104/71 97 07/05/18 07:00 07/05/18 07:00 07/05/18 07:00 07/05/18 07:00 07/05/18 07:00 General appearance: Present: cooperative, A&O X 3, no acute distress, answers questions appropriately Exam: Gen: Alert, awake, Oriented to time,place and person Chest: Diminished breath sounds B/L, No wheezing, No crackles, No rales Breast : s/p I & D left breast LLQ with wound packing.. No more discharge..Improved erythema and swelling over left breast noticed Heart: S1S2+ RRR No murmurs Abd: Soft, NT, BS +, No organomegaly Ext: No edema, pulses are palpable, No calf tenderness Neuro : Benign findings - Patient Status Disposition: Home, Self-Care Condition: Good Overall status at discharge: patient is back to baseline - Discharge Instructions Follow Up With: Sanya Romero MD [Partnered Physician] - 07/11/18 9:45 am Pam Thayer CNP [Primary Care Provider] - 07/11/18 11:30 am (Appointment has been requsted. Our offices will call with an appointment time and date.) - Diet and Activity Activity: increase activity as tolerated Diet: low salt diet
[2018-07-05 11:10] VITALS: BP 113/71
== END 2018-07-05 11:23 | disposition home or self-care (01) | DRG 385 ==
LOC: 3BNU 21:45 → EMEROOARM 21:45 → 3BNU 07-03 04:09 → SUATTDRO 07-03 04:25
PROVIDERS: ADMIT Internal Medicine; ATTEND Family Medicine